=== PATIENT | male | born 1995 | race Caucasian/White ===

== ENCOUNTER 2019-02-20 13:30 | Emergency (ER) | payer SELFPAY ==
[2019-02-20] MEDS ORDERED: LIDOCAINE 2% MPF 5 ML VIAL ONE (14:10)
[2019-02-20] MEDS ORDERED: AZITHROMYCIN 250 MG TAB ONE (14:10)
[2019-02-20] MEDS ORDERED: CEFTRIAXONE 250 MG/VIAL ONE (14:10)
[2019-02-20 14:25] LABS: Urine Blood NEGATIVE (NEG); Urine Glucose NEGATIVE (NEG); Urine Protein NEGATIVE (NEG); Urine Specific Gravity 1.025 (1.005-1.030); Urine pH 6.5 (5.0-7.0)
[2019-02-20 14:47] LABS: Urine Bacteria <20 /HPF (NONE SEEN); Urine Culture Reflex Order NOT NEEDED; Urine RBC <5 /HPF (NONE SEEN)
--- NOTE | 2019-02-20 14:52 | EDPHYS ---
Physician Documentation [facility] Name: Yunior Bautista Age: 23 yrs Sex: Male : 1995 Arrival Date: 02/20/2019 Time: 13:33 Bed 9 Private MD: ED Physician Alejandro Alvarado HPI: 02/20 14:29 This 23 yrs old Male presents to ER via Ambulatory with complaints of Penile kb Discharge. 14:29 The patient presents with a possible STD exposure, symptoms include dysuria, purulent kb penile discharge. Onset: The symptoms/episode began/occurred last week. Modifying factors: The symptoms are alleviated by nothing, the symptoms are aggravated by urinating. Associated signs and symptoms: Pertinent positives: dysuria, Pertinent negatives: abdominal pain, constipation, diarrhea, fever, hematuria, nausea, vomiting. Severity of symptoms: At their worst the symptoms were mild, in the emergency department the symptoms are unchanged. The patient has not experienced similar symptoms in the past. The patient has not recently seen a physician. Historical: - Allergies: 13:52 No Known Allergies; la1 - PMHx: 13:52 None; la1 - Immunization history:: Adult Immunizations up to date. - Social history:: Smoking status: Patient uses tobacco products, smokes one-half pack cigarettes per day. - Ebola Screening: : No symptoms or risks identified at this time. ROS: 14:28 Constitutional: Negative for fever, chills, and weight loss, Cardiovascular: Negative kb for chest pain, palpitations, and edema, Respiratory: Negative for shortness of breath, cough, wheezing, and pleuritic chest pain, Abdomen/GI: Negative for abdominal pain, nausea, vomiting, diarrhea, and constipation, Back: Negative for injury and pain, MS/Extremity: Negative for injury and deformity, Skin: Negative for injury, rash, and discoloration, Neuro: Negative for headache, weakness, numbness, tingling, and seizure. 14:28 : Positive for burning with urination, penile discharge. Exam: 14:28 Constitutional: This is a well developed, well nourished patient who is awake, alert, kb and in no acute distress. Head/Face: Normocephalic, atraumatic. ENT: Nares patent. No nasal discharge, no septal abnormalities noted. Tympanic membranes are normal and external auditory canals are clear. Oropharynx with no redness, swelling, or masses, exudates, or evidence of obstruction, uvula midline. Mucous membranes moist. Neck: Trachea midline, no thyromegaly or masses palpated, and no cervical lymphadenopathy. Supple, full range of motion without nuchal rigidity, or vertebral point tenderness. No Meningismus. Chest/axilla: Normal chest wall appearance and motion. Nontender with no deformity. No lesions are appreciated. Cardiovascular: Regular rate and rhythm with a normal S1 and S2. No gallops, murmurs, or rubs. Normal PMI, no JVD. No pulse deficits. Respiratory: Lungs have equal breath sounds bilaterally, clear to auscultation and percussion. No rales, rhonchi or wheezes noted. No increased work of breathing, no retractions or nasal flaring. Abdomen/GI: Soft, non-tender, with normal bowel sounds. No distension or tympany. No guarding or rebound. No evidence of tenderness throughout. Back: No spinal tenderness. No costovertebral tenderness. Full range of motion. Male : Normal genitalia with no discharge or lesions. Skin: Warm, dry with normal turgor. Normal color with no rashes, no lesions, and no evidence of cellulitis. MS/ Extremity: Pulses equal, no cyanosis. Neurovascular intact. Full, normal range of motion. Neuro: Awake and alert, GCS 15, oriented to person, place, time, and situation. Cranial nerves II-XII grossly intact. Motor strength 5/5 in all extremities. Sensory grossly intact. Cerebellar exam normal. Normal gait. Vital Signs: 13:52 BP 139 / 98; Pulse 76; Resp 16; Temp 97.8; Pulse Ox 100% on R/A; Weight 68.04 kg; la1 Height 6 ft. 0 in. (182.88 cm); 13:52 Body Mass Index 20.34 (68.04 kg, 182.88 cm) la1 MDM: 13:56 Patient medically screened. kb 14:29 Data reviewed: vital signs, nurses notes. Data interpreted: Pulse oximetry: on room air kb is 100 %. Interpretation: normal. 14:30 Counseling: I had a detailed discussion with the patient and/or guardian regarding: the kb historical points, exam findings, and any diagnostic results supporting the discharge/admit diagnosis, lab results, the need for outpatient follow up, a family practitioner, to return to the emergency department if symptoms worsen or persist or if there are any questions or concerns that arise at home. 02/20 14:02 Order name: Urine Dipstick--Ancillary (enter results); Complete Time: 14:25 bd 02/20 14:05 Order name: Urine Microscopic Only; Complete Time: 14:51 kb 02/20 13:56 Order name: Urine Dipstick-Ancillary (obtain specimen); Complete Time: 14:01 kb Administered Medications: 14:16 Drug: Zithromax 1 grams Route: PO; iw 15:05 Follow up: Response: No adverse reaction iw 14:17 Drug: Rocephin (cefTRIAXone) 250 mg Route: IM; Site: right gluteus; iw 15:04 Follow up: Response: No adverse reaction iw 15:04 Drug: Zofran 4 mg Route: PO; iw 15:05 Follow up: Response: No adverse reaction iw Disposition: 16:21 Co-signature as Attending Physician, Alejandro Alvarado MD I agree with the assessment and kdr plan of care. Disposition: 02/20/19 14:51 Discharged to Home. Impression: Dysuria. - Condition is Stable. - Discharge Instructions: Dysuria, Sexually Transmitted Disease, [id number]. - Medication Reconciliation Form, Thank You Letter, Antibiotic Education, Prescription Opioid Use form. - Follow up: Emergency Department; When: As needed; Reason: Worsening of condition. Follow up: Private Physician; When: 2 - 3 days; Reason: Recheck today's complaints, Continuance of care, Re-evaluation by your physician. Signatures: Dispatcher [employer] [facility] Mary Alice Ghosh, VICKY-C VICKY-Alejandro Faustin MD MD [facility] Neela Vallejo RN RN iw Aayush Rodrigez RN RN la1 Corrections: (The following items were deleted from the chart) 15: 14:51 02/20/2019 14:51 Discharged to Home. Impression: Dysuria. Condition is Stable. iw Forms are Medication Reconciliation Form, Thank You Letter, Antibiotic Education, Prescription Opioid Use. Follow up: Emergency Department; When: As needed; Reason: Worsening of condition. Follow up: Private Physician; When: 2 - 3 days; Reason: Recheck today's complaints, Continuance of care, Re-evaluation by your physician. kb
--- NOTE | 2019-02-20 14:52 | ER ---
Nurse's Notes [facility] Name: Yunior Bautista Age: 23 yrs Sex: Male : 1995 Arrival Date: 02/20/2019 Time: 13:33 Bed 9 Private MD: Diagnosis: Dysuria Presentation: 02/20 13:51 Presenting complaint: Patient states: for the last week I have been having burning when la1 I pee and today I noticed some penile discharge. Transition of care: patient was not received from another setting of care. Onset of symptoms was February 20, 2019. Risk Assessment: Do you want to hurt yourself or someone else? Patient reports no desire to harm self or others. Initial Sepsis Screen: Does the patient meet any 2 criteria? No. Patient's initial sepsis screen is negative. Does the patient have a suspected source of infection? No. Patient's initial sepsis screen is negative. Care prior to arrival: None. 13:51 Method Of Arrival: Ambulatory la1 13:51 Acuity: JJ 4 la1 Historical: - Allergies: 13:52 No Known Allergies; la1 - PMHx: 13:52 None; la1 - Immunization history:: Adult Immunizations up to date. - Social history:: Smoking status: Patient uses tobacco products, smokes one-half pack cigarettes per day. - Ebola Screening: : No symptoms or risks identified at this time. Screenin:54 Abuse screen: Denies threats or abuse. Nutritional screening: No deficits noted. la1 Tuberculosis screening: No symptoms or risk factors identified. Fall Risk None identified. Assessment: 13:53 General: Appears in no apparent distress. Behavior is calm, cooperative. Pain: Denies la1 pain. Neuro: Level of Consciousness is awake, alert, obeys commands, Oriented to person, place, time, situation. Cardiovascular: Capillary refill. Respiratory: Airway is patent Respiratory effort is even, unlabored, Respiratory pattern is regular, symmetrical. GI: No signs and/or symptoms were reported involving the gastrointestinal system. : Reports burning with urination, urethral discharge. Vital Signs: 13:52 BP 139 / 98; Pulse 76; Resp 16; Temp 97.8; Pulse Ox 100% on R/A; Weight 68.04 kg; la1 Height 6 ft. 0 in. (182.88 cm); 13:52 Body Mass Index 20.34 (68.04 kg, 182.88 cm) la1 ED Course: 13:33 Patient arrived in ED. rg4 13:52 Triage completed. la1 13:53 Arm band placed on left wrist. la1 13:54 Patient has correct armband on for positive identification. la1 13:56 Mary Alice Ghosh FNP-C is [facility]. kb 13:56 Alejandro Alvarado MD is Attending Physician. kb 14:15 Neela Vallejo, RN is Primary Nurse. iw 15:05 No provider procedures requiring assistance completed. Patient did not have IV access iw during this emergency room visit. Administered Medications: 14:16 Drug: Zithromax 1 grams Route: PO; iw 15:05 Follow up: Response: No adverse reaction iw 14:17 Drug: Rocephin (cefTRIAXone) 250 mg Route: IM; Site: right gluteus; iw 15:04 Follow up: Response: No adverse reaction iw 15:04 Drug: Zofran 4 mg Route: PO; iw 15:05 Follow up: Response: No adverse reaction iw Outcome: 14:51 Discharge ordered by . kb 15:05 Discharged to home ambulatory. iw 15:05 Condition: good 15:05 Discharge instructions given to patient, Instructed on discharge instructions, follow up and referral plans. Demonstrated understanding of instructions, follow-up care. 15:05 Patient left the ED. iw Signatures: Mary Alice Ghosh FNP-C FNP-CkNeela Velazco RN CK iw Aayush Rodrigez RN RN la1 Garcia, Rubi rg4
[2019-02-20] MEDS ORDERED: ONDANSETRON 4 MG (ODT) TAB ONE (15:01)
[2019-02-20 15:27] VITALS: BP 139/98; TEMP 97.8; O2SAT 100
== END 2019-02-20 15:05 | disposition home or self-care (01) ==
LOC: ER 13:30
DX: R30.0 Dysuria (principal); F17.210 Nicotine dependence, cigarettes, uncomplicated
CPT/HCPCS: 81003; 81015; 96372; 99283; J0696

== ENCOUNTER 2019-05-03 08:58 | Emergency (ER) | payer SELFPAY ==
[2019-05-03 09:53] LABS: Absolute Lymphocytes (CBC) 1.6 K/uL (0.7-4.9); Basophils % 0.4 % (0-1.3); MPV 9.4 fL (7.6-11.3); RBC Red Blood Cell Count 6.17 M/uL (4.33-5.43)
[2019-05-03] MEDS ORDERED: METOCLOPRAMIDE 10 MG/2mL INJ ONE (09:59)
[2019-05-03] MEDS ORDERED: DIPHENHYDRAMINE 50 MG/ML VIAL ONE (09:59)
[2019-05-03] MEDS ORDERED: NA CHLORIDE 0.9% 1,000 ML ONE (09:59)
[2019-05-03 10:10] LABS: ALT/SGPT 18 U/L (12-78); AST/SGOT 15 U/L (15-37); Albumin 4.4 g/dL (3.4-5.0); Alkaline Phosphatase 87 U/L (45-117); BUN Blood Urea Nitrogen 8 mg/dL (7-18); Bicarbonate 30 mmol/L (21-32); Bilirubin Direct 0.3 mg/dL (0-0.2); Bilirubin Total 1.1 mg/dL (0.2-1.0); Glucose Level 86 mg/dL (74-106); Lipase 148 U/L (73-393); Potassium 3.7 mmol/L (3.5-5.1); Sodium Level 139 mmol/L (136-145)
[2019-05-03 10:13] LABS: Urine Blood NEGATIVE (NEG); Urine Glucose NEGATIVE (NEG); Urine Protein 1+ (NEG); Urine Specific Gravity >1.030 (1.005-1.030); Urine pH 5.5 (5.0-7.0)
--- NOTE | 2019-05-03 11:57 | ER ---
Nurse's Notes [facility] Name: Yunior Bautista Age: 23 yrs Sex: Male : 1995 Arrival Date: 05/03/2019 Time: 09:03 Bed 17 Private MD: Diagnosis: Vomiting Presentation: 05/03 09:08 Presenting complaint: N/V upon waking today. Denies pain/fever. Transition of care: hb patient was not received from another setting of care. Onset of symptoms was May 03, 2019. Risk Assessment: Do you want to hurt yourself or someone else? Patient reports no desire to harm self or others. Initial Sepsis Screen: Does the patient meet any 2 criteria? No. Patient's initial sepsis screen is negative. Does the patient have a suspected source of infection? No. Patient's initial sepsis screen is negative. Care prior to arrival: None. 09:08 Method Of Arrival: Ambulatory 09:08 Acuity: JJ 3 hb Triage Assessment: 10:00 General: Appears in no apparent distress. comfortable, slender, Behavior is calm, ae4 cooperative. General: Patient is also concerned about an STD, patient denies urinary symptoms at this time. . Pain: Complains of pain in abdomen. EENT: No signs and/or symptoms were reported regarding the EENT system. Patient has braces. . Neuro: Level of Consciousness is awake, alert, obeys commands, Oriented to person, place, time, situation, Appropriate for age. Cardiovascular: Heart tones S1 S2 present Patient's skin is warm and dry. Respiratory: Airway is patent Respiratory effort is even, unlabored, Respiratory pattern is regular, symmetrical. GI: Reports nausea, vomiting. : No signs and/or symptoms were reported regarding the genitourinary system. Derm: Skin is normal. Musculoskeletal: No signs and/or symptoms reported regarding the musculoskeletal system. Historical: - Allergies: 09:09 No Known Allergies; hb - Immunization history:: Adult Immunizations up to date. - Social history:: Smoking status: Patient/guardian denies using tobacco. - Ebola Screening: : No symptoms or risks identified at this time. Screenin:07 Abuse screen: Denies threats or abuse. Nutritional screening: No deficits noted. ae4 Tuberculosis screening: No symptoms or risk factors identified. Fall Risk None identified. Assessment: 10:00 General: Appears in no apparent distress. comfortable, slender. Pain: Complains of pain ae4 in abdomen. Neuro: Level of Consciousness is awake, alert, obeys commands. Cardiovascular: Patient's skin is warm and dry. Respiratory: Airway is patent Respiratory effort is even, unlabored, Respiratory pattern is regular, symmetrical, Breath sounds are clear bilaterally. GI: Reports nausea, vomiting. GI: Abdomen is flat, non-distended, Bowel sounds present X 4 quads. Abd is soft and non tender. : No signs and/or symptoms were reported regarding the genitourinary system. Patient states he is concerned about STDs after engaging in unprotected sexual activity. EENT: Patient wears braces. . Derm: Skin is normal. Musculoskeletal: No signs and/or symptoms reported regarding the musculoskeletal system. 11:06 Reassessment: Patient drank approximately 4 oz water and has not vomited. GI: Patient ae4 currently denies nausea. 11:50 Reassessment:. Reassessment: patient refuses GC swab, states "No, I'll wait, I'll wait, ae4 I can't do that." Provider notified. Vital Signs: 09:09 BP 135 / 76; Pulse 82; Resp 16; Temp 97.2; Pulse Ox 100% ; Weight 72.57 kg; Height 6 hb ft. (182.88 cm); Pain 0/10; 11:11 BP 143 / 94; Pulse 63; Resp 17; Pulse Ox 98% on R/A; ae4 12:18 BP 110 / 76; Pulse 65; Resp 16; Pulse Ox 98% on R/A; ae4 09:09 Body Mass Index 21.70 (72.57 kg, 182.88 cm) ED Course: 09:03 Patient arrived in ED. as 09:09 Dany Lorenz PA is PHCP. jm 09:09 Alejandro Alvarado MD is Attending Physician. jm 09:09 Triage completed. hb 09:09 Arm band placed on. hb 09:18 Torres Jules, CK is Primary Nurse. ae4 09:45 Urine collected: clean catch specimen, cloudy, rosemarie colored. jb1 09:45 Initial lab(s) drawn, by me, sent to lab. jb1 10:00 Bed in low position. Call light in reach. Side rails up X 1. Pulse ox on. NIBP on. ae4 10:05 Inserted saline lock: 22 gauge in right antecubital area, using aseptic technique. jb1 Blood collected. 11:15 Warm blanket given. ae4 12:21 No provider procedures requiring assistance completed. IV discontinued, intact, ae4 bleeding controlled, No redness/swelling at site. Pressure dressing applied. Administered Medications: 10:25 Drug: NS 0.9% 1000 ml Route: IV; Rate: 1 bolus; Site: right antecubital; ae4 12:20 Follow up: IV Status: Completed infusion; IV Intake: 1000ml ae4 10:25 Drug: diphenhydrAMINE 12.5 mg Route: IVP; Site: right antecubital; ae4 11:00 Follow up: Response: No adverse reaction; Other ae4 10:28 Drug: Reglan 10 mg Route: IVP; Site: right antecubital; ae4 11:00 Follow up: Response: No adverse reaction; Pain is decreased ae4 Intake: 12:20 IV: 1000ml; Total: 1000ml. ae4 Outcome: 11:56 Discharge ordered by MD. webster 12:21 Discharged to home ambulatory. ae4 12:21 Condition: stable 12:21 Discharge instructions given to patient, Instructed on discharge instructions, follow up and referral plans. medication usage, safe sex practices, Demonstrated understanding of instructions, follow-up care, medications, Prescriptions given X 1. 12:21 Patient left the ED. ae4 Signatures: Ruel Matta jb1 Dany Lorenz PA PA jmm Martinez, Amelia as Baxter, Heather, RN RN Torres Jules RN RN ae4 Corrections: (The following items were deleted from the chart) 09:31 09:08 Acuity: JJ 4 hb hb
--- NOTE | 2019-05-03 11:57 | EDPHYS ---
Physician Documentation [facility] Name: Yunior Bautista Age: 23 yrs Sex: Male : 1995 Arrival Date: 05/03/2019 Time: 09:03 Bed 17 Private MD: ED Physician Alejandro Alvarado HPI: 05/03 09:25 This 23 yrs old Male presents to ER via Ambulatory with complaints of jmm Vomiting. 09:25 The patient presents to the emergency department with nausea, vomiting. Onset: The jmm symptoms/episode began/occurred gradually, 4 day(s) ago. The symptoms are aggravated by nothing. The symptoms are alleviated by nothing. Associated signs and symptoms: Pertinent negatives: abdominal pain. This is a 23 year old male with no chronic medical conditions that presents to the ED with complaints of nausea/vomiting for the past 4 days. Denies abdominal pain, diarrhea. Patient admits to smoking marijuana daily. Has not smoked in 4 days. Denies fever or chills. . Historical: - Allergies: 09:09 No Known Allergies; hb - Immunization history:: Adult Immunizations up to date. - Social history:: Smoking status: Patient/guardian denies using tobacco. - Ebola Screening: : No symptoms or risks identified at this time. ROS: 09:25 Constitutional: Negative for fever, chills, and weight loss, Cardiovascular: Negative jmm for chest pain, palpitations, and edema, Respiratory: Negative for shortness of breath, cough, wheezing, and pleuritic chest pain. 09:25 Abdomen/GI: Positive for nausea, vomiting, Negative for abdominal pain, diarrhea. 09:25 All other systems are negative. Exam: 09:25 Constitutional: This is a well developed, well nourished patient who is awake, alert, jmm and in no acute distress. Head/Face: atraumatic. Eyes: EOMI, no conjunctival erythema appreciated ENT: Moist Mucus Membranes Neck: Trachea midline, Supple Chest/axilla: Normal chest wall appearance and motion. Cardiovascular: Regular rate and rhythm. No edema appreciated Respiratory: Normal respirations, no respiratory distress appreciated Abdomen/GI: Non distended, soft Back: Normal ROM Skin: General appearance color normal MS/ Extremity: Moves all extremities, no obvious deformities appreciated, no edema noted to the lower extremities Neuro: Awake and alert, normal gait Psych: Behavior is normal, Mood is normal, Patient is cooperative and pleasant 09:25 Abdomen/GI: Inspection: abdomen appears normal, Bowel sounds: normal, Palpation: abdomen is soft and non-tender, in all quadrants. Vital Signs: 09:09 BP 135 / 76; Pulse 82; Resp 16; Temp 97.2; Pulse Ox 100% ; Weight 72.57 kg; Height 6 hb ft. (182.88 cm); Pain 0/10; 11:11 BP 143 / 94; Pulse 63; Resp 17; Pulse Ox 98% on R/A; ae4 12:18 BP 110 / 76; Pulse 65; Resp 16; Pulse Ox 98% on R/A; ae4 09:09 Body Mass Index 21.70 (72.57 kg, 182.88 cm) hb MDM: 09:19 Patient medically screened. [facility] 11:54 Data reviewed: vital signs, nurses notes. Counseling: I had a detailed discussion with darin the patient and/or guardian regarding: the historical points, exam findings, and any diagnostic results supporting the discharge/admit diagnosis, lab results, the need for outpatient follow up, to return to the emergency department if symptoms worsen or persist or if there are any questions or concerns that arise at home. ED course: Labs WNL, abdomen non tender to palpation. I do not suspect an acute intraabdominal process. Patient is advised to follow up with PCP and otherwise given strict return precautions. Patient understood and agrees with the plan of care. . 05/03 09:24 Order name: Basic Metabolic Panel; Complete Time: 10:15 [facility] 05/03 09:24 Order name: CBC with Diff; Complete Time: 10:15 [facility] 05/03 09:24 Order name: Creatinine for Radiology; Complete Time: 10:15 [facility] 05/03 09:24 Order name: Hepatic Function; Complete Time: 10:15 [facility] 05/03 09:24 Order name: Lipase; Complete Time: 10:15 [facility] 05/03 10:03 Order name: Urine Dipstick--Ancillary (enter results); Complete Time: 10:15 05/03 09:24 Order name: IV Saline Lock; Complete Time: 09:54 [facility] 05/03 09:24 Order name: Labs collected and sent; Complete Time: 09:54 [facility] 05/03 09:24 Order name: Urine Dipstick-Ancillary (obtain specimen); Complete Time: 10:06 [facility] 05/03 10:37 Order name: PO challenge; Complete Time: 10:53 [facility] Administered Medications: 10:25 Drug: NS 0.9% 1000 ml Route: IV; Rate: 1 bolus; Site: right antecubital; ae4 12:20 Follow up: IV Status: Completed infusion; IV Intake: 1000ml ae4 10:25 Drug: diphenhydrAMINE 12.5 mg Route: IVP; Site: right antecubital; ae4 11:00 Follow up: Response: No adverse reaction; Other ae4 10:28 Drug: Reglan 10 mg Route: IVP; Site: right antecubital; ae4 11:00 Follow up: Response: No adverse reaction; Pain is decreased ae4 Disposition: 12:44 Co-signature as Attending Physician, Alejandro Alvarado MD I agree with the assessment and kdr plan of care. Disposition: 05/03/19 11:56 Discharged to Home. Impression: Vomiting. - Condition is Stable. - Discharge Instructions: Nausea and Vomiting, Adult. - Prescriptions for Reglan 5 mg Oral tablet - take 1 tablet by ORAL route every 6 hours; 20 tablet. - Medication Reconciliation Form, Thank You Letter, Antibiotic Education, Prescription Opioid Use form. - Follow up: Private Physician; When: 2 - 3 days; Reason: Recheck today's complaints, Continuance of care, Re-evaluation by your physician. Signatures: Dispatcher [employer] EDMI Alejandro Alvarado MD MD kdr Mickail, Joel, PA PA [facility] Bekah Flores RN RN Torres Jules RN RN ae4 Corrections: (The following items were deleted from the chart) 12:21 11:56 05/03/2019 11:56 Discharged to Home. Impression: Vomiting. Condition is Stable. ae4 Forms are Medication Reconciliation Form, Thank You Letter, Antibiotic Education, Prescription Opioid Use. Follow up: Private Physician; When: 2 - 3 days; Reason: Recheck today's complaints, Continuance of care, Re-evaluation by your physician. [facility]
[2019-05-03 12:32] VITALS: TEMP 97.2
[2019-05-03 12:33] VITALS: O2SAT 98
[2019-05-03 12:34] VITALS: BP 110/76
== END 2019-05-03 12:21 | disposition home or self-care (01) ==
LOC: ER 08:58
DX: R11.2 Nausea with vomiting, unspecified (principal)
CPT/HCPCS: 36415; 80048; 80076; 81003; 83690; 85025; 96361; 96374; 96375; 99284; J1200; J2765; J7030

== ENCOUNTER 2019-05-12 20:18 | Emergency (ER) | payer SELFPAY ==
[2019-05-12] MEDS ORDERED: AZITHROMYCIN 250 MG TAB ONE (21:04)
[2019-05-12] MEDS ORDERED: LIDOCAINE 1% MPF 2 ML AMPULE ONE (21:04)
[2019-05-12] MEDS ORDERED: ONDANSETRON 4 MG (ODT) TAB ONE (21:05)
[2019-05-12] MEDS ORDERED: CEFTRIAXONE 250 MG/VIAL ONE (21:05)
[2019-05-12 21:08] LABS: Urine Blood NEGATIVE (NEG); Urine Glucose NEGATIVE (NEG); Urine Protein NEGATIVE (NEG)
[2019-05-12 21:33] LABS: Urine Amorphous Sediment 2+ /HPF (NONE SEEN); Urine Bacteria 20-50 /HPF (NONE SEEN); Urine Coarse Granular Casts 0-5 /LPF (NONE SEEN); Urine Mucus 2+ /HPF (NONE SEEN); Urine RBC NONE SEEN /HPF (NONE SEEN)
[2019-05-12 21:36] LABS: Urine Culture Reflex Order NOT NEEDED
--- NOTE | 2019-05-12 21:45 | EDPHYS ---
Physician Documentation [facility] Name: Yunior Bautista Age: 23 yrs Sex: Male : 1995 Arrival Date: 05/12/2019 Time: 20:21 Bed 5 Private MD: ED Physician Renny Gustafson HPI: 05/12 21:05 This 23 yrs old Male presents to ER via Ambulatory with complaints of genital pm1 warts and itching. 21:05 The patient presents with symptoms include bumps on penis, one episode of whitish pm1 discharge from penis last week, redness and itching to scrotal area. Onset: The symptoms/episode began/occurred Present since February 2019 and has not resolved. Modifying factors: The symptoms are alleviated by nothing, the symptoms are aggravated by touching. Associated signs and symptoms: Pertinent negatives: abdominal pain, dysuria, fever, nausea, vomiting, scrotal pain. Severity of symptoms: in the emergency department the symptoms are unchanged. It is unknown whether or not the patient has recently seen a physician. Historical: - Allergies: 20:40 No Known Allergies; bb - Home Meds: 20:40 None [Active]; bb - PMHx: 20:40 None; bb - PSHx: 20:40 None; bb - Immunization history:: Adult Immunizations up to date. - Social history:: Smoking status: unknown. - Ebola Screening: : No symptoms or risks identified at this time. ROS: 21:05 Constitutional: Negative for fever, chills, and weight loss, Cardiovascular: Negative pm1 for chest pain, palpitations, and edema, Respiratory: Negative for shortness of breath, cough, wheezing, and pleuritic chest pain, Abdomen/GI: Negative for abdominal pain, nausea, vomiting, diarrhea, and constipation, Back: Negative for injury and pain. 21:05 MS/Extremity: Negative for injury and deformity. 21:05 Neuro: Negative for headache, weakness, numbness, tingling, and seizure. 21:05 : Positive for penile discharge, itchy rash to scrotum, bumps on penile shaft, Negative for burning with urination, penile pain, testicular pain 21:05 Skin: Positive for rash, of the groin. Exam: 21:05 Constitutional: This is a well developed, well nourished patient who is awake, alert, pm1 and in no acute distress. Head/Face: Normocephalic, atraumatic. Chest/axilla: Normal chest wall appearance and motion. Nontender with no deformity. No lesions are appreciated. Cardiovascular: Regular rate and rhythm with a normal S1 and S2. No gallops, murmurs, or rubs. Normal PMI, no JVD. No pulse deficits. Respiratory: Lungs have equal breath sounds bilaterally, clear to auscultation and percussion. No rales, rhonchi or wheezes noted. No increased work of breathing, no retractions or nasal flaring. Abdomen/GI: Soft, non-tender, with normal bowel sounds. No distension or tympany. No guarding or rebound. No evidence of tenderness throughout. Back: No spinal tenderness. No costovertebral tenderness. Full range of motion. 21:05 : Male external genitalia: Circumcision noted. lesion, of the shaft of penis, that is painless, 1 mm papules, penile discharge, is absent, scrotal skin with the appearance of tinea cruris or cutaneous candidiasis: scaling erythematous patches. 21:05 MS/ Extremity: Pulses equal, no cyanosis. Neurovascular intact. Full, normal range pm1 of motion. 21:05 Neuro: Orientation: is normal, Motor: is normal, moves all fours, Sensation: is normal, no obvious gross deficits, Gait: is steady, at a normal pace, without difficulty. Vital Signs: 20:40 BP 148 / 90; Pulse 96; Resp 14 S; Temp 98.2(O); Pulse Ox 97% on R/A; Weight 72.57 kg bb (R); Height 6 ft. 0 in. (182.88 cm) (R); Pain 7/10; 21:52 BP 136 / 90; Pulse 74; Resp 14 S; Temp 98.5(O); Pulse Ox 98% on R/A; bb 20:40 Body Mass Index 21.70 (72.57 kg, 182.88 cm) bb MDM: 20:43 Patient medically screened. [facility] 21:09 ED course: patient with genital warts on shaft of his penis. Impression is likely HPV pm1 since multiple papular lesions present along shaft of penis. No vesicles per history or examination so I do not suspect HSV. Patient with redness to scrotal area without swelling, that appears to be tinea cruris or candidiasis. Will treat the patient with topical clotrimazole prescription. Rocephin and azithromycin in the ER. 21:40 Data reviewed: vital signs. Data interpreted: Pulse oximetry: on room air is 97 %. pm1 Interpretation: normal. Counseling: I had a detailed discussion with the patient and/or guardian regarding: the historical points, exam findings, and any diagnostic results supporting the discharge/admit diagnosis, lab results, the need for outpatient follow up, STD clinic and/or dermatology, to return to the emergency department if symptoms worsen or persist or if there are any questions or concerns that arise at home. 05/12 20:46 Order name: Urine Microscopic Only; Complete Time: 21:40 pm1 05/12 21:02 Order name: Urine Dipstick--Ancillary (enter results); Complete Time: 21:17 mt 05/12 21:35 Order name: Urine Culture EDIL 05/12 20:46 Order name: Urine Dipstick-Ancillary (obtain specimen); Complete Time: 21:01 pm1 Administered Medications: 21:08 Drug: Rocephin (cefTRIAXone) 250 mg Route: IM; Site: left gluteus; bb 21:51 Follow up: Response: No adverse reaction bb 21:08 Drug: Zithromax 1 grams Route: PO; bb 21:52 Follow up: Response: No adverse reaction bb 21:08 Drug: Zofran 4 mg Route: PO; bb 21:52 Follow up: Response: No adverse reaction bb Disposition: 05/13 09:38 Co-signature as Attending Physician, Renny Gustafson MD I agree with the assessment and alva plan of care. Disposition: 05/12/19 21:42 Discharged to Home. Impression: Anogenital (venereal) warts, Rash and other nonspecific skin eruption - Cutaneous candidiasis vs Tinea cruris. - Condition is Stable. - Discharge Instructions: Genital Warts, Sexually Transmitted Disease, Jock Itch, Human Papillomavirus, Genital Yeast Infection, Male. - Prescriptions for Clotrimazole 1 % Topical Cream - Apply to affected area 1 application by TOPICAL route every 12 hours; 30 gram. - Medication Reconciliation Form, Thank You Letter, Antibiotic Education, Prescription Opioid Use form. - Follow up: Emergency Department; When: As needed; Reason: Worsening of condition. Follow up: Private Physician; When: 2 - 3 days; Reason: Recheck today's complaints, Continuance of care, Re-evaluation by your physician. - Problem is new. - Symptoms have improved. Signatures: Dispatcher [employer] EDRenny Gary MD MD cha Ballard, Brenda, RN RN bb Lavell Cristina, [employer]ATH[employer]ICA[employer] ANALYST pm1 Corrections: (The following items were deleted from the chart) 05/12 21:53 21:42 05/12/2019 21:42 Discharged to Home. Impression: Anogenital (venereal) warts; bb Rash and other nonspecific skin eruption - Cutaneous candidiasis vs Tinea cruris. Condition is Stable. Discharge Instructions: Genital Warts, Sexually Transmitted Disease, Human Papillomavirus, Genital Yeast Infection, Male. Prescriptions for Clotrimazole 1 % Topical Cream - Apply to affected area 1 application by TOPICAL route every 12 hours; 30 gram. and Forms are Medication Reconciliation Form, Thank You Letter, Antibiotic Education, Prescription Opioid Use. Follow up: Emergency Department; When: As needed; Reason: Worsening of condition. Follow up: Private Physician; When: 2 - 3 days; Reason: Recheck today's complaints, Continuance of care, Re-evaluation by your physician. Problem is new. Symptoms have improved. pm1
--- NOTE | 2019-05-12 21:45 | ER ---
Nurse's Notes [facility] Name: Yunior Bautista Age: 23 yrs Sex: Male : 1995 Arrival Date: 05/12/2019 Time: 20:21 Bed 5 Private MD: Diagnosis: Anogenital (venereal) warts;Rash and other nonspecific skin eruption-Cutaneous candidiasis vs Tinea cruris Presentation: 05/12 20:39 Presenting complaint: Patient states: he has a rash to his scrotal area which has bb gotten worse he was seen here for it and given antibiotic ointment but it hasn't gone away. Transition of care: patient was not received from another setting of care. Onset of symptoms was May 12, 2019. Risk Assessment: Do you want to hurt yourself or someone else? Patient reports no desire to harm self or others. Initial Sepsis Screen: Does the patient meet any 2 criteria? No. Patient's initial sepsis screen is negative. Does the patient have a suspected source of infection? No. Patient's initial sepsis screen is negative. Care prior to arrival: None. 20:39 Method Of Arrival: Ambulatory bb 20:39 Acuity: JJ 3 bb Historical: - Allergies: 20:40 No Known Allergies; bb - Home Meds: 20:40 None [Active]; bb - PMHx: 20:40 None; bb - PSHx: 20:40 None; bb - Immunization history:: Adult Immunizations up to date. - Social history:: Smoking status: unknown. - Ebola Screening: : No symptoms or risks identified at this time. Screenin:41 Abuse screen: Denies threats or abuse. Nutritional screening: No deficits noted. bb Tuberculosis screening: No symptoms or risk factors identified. Fall Risk None identified. Assessment: 20:41 General: Appears in no apparent distress. Behavior is calm, cooperative. Pain: bb Complains of pain in scrotal area Pain currently is 7 out of 10 on a pain scale. Neuro: Level of Consciousness is awake, alert, obeys commands, Oriented to person, place, time, situation. Cardiovascular: No deficits noted. Respiratory: Respiratory effort is even, unlabored, Respiratory pattern is regular. GI: No deficits noted. No signs and/or symptoms were reported involving the gastrointestinal system. Derm: Reports pain that is 7 out of 10 on a pain scale. Musculoskeletal: Circulation, motion, and sensation intact. 21:51 Reassessment: Patient is alert, oriented x 3, equal unlabored respirations, skin bb warm/dry/pink. pt verbalized understanding of and agrees to plan of care discharge instructions given pt ambulated with steady gait to exit. Vital Signs: 20:40 BP 148 / 90; Pulse 96; Resp 14 S; Temp 98.2(O); Pulse Ox 97% on R/A; Weight 72.57 kg bb (R); Height 6 ft. 0 in. (182.88 cm) (R); Pain 7/10; 21:52 BP 136 / 90; Pulse 74; Resp 14 S; Temp 98.5(O); Pulse Ox 98% on R/A; bb 20:40 Body Mass Index 21.70 (72.57 kg, 182.88 cm) bb ED Course: 20:21 Patient arrived in ED. cl3 20:39 Meseret Geiger, RN is Primary Nurse. bb 20:40 Triage completed. bb 20:40 Arm band placed on Patient placed in an exam room, on a stretcher, on pulse oximetry. bb 20:41 Patient has correct armband on for positive identification. bb 20:43 Renny Gustafson MD is Attending Physician. alva 20:45 Lavell Cristina NP is [facility]. pm1 21:52 No provider procedures requiring assistance completed. Patient did not have IV access bb during this emergency room visit. Administered Medications: 21:08 Drug: Rocephin (cefTRIAXone) 250 mg Route: IM; Site: left gluteus; bb 21:51 Follow up: Response: No adverse reaction bb 21:08 Drug: Zithromax 1 grams Route: PO; bb 21:52 Follow up: Response: No adverse reaction bb 21:08 Drug: Zofran 4 mg Route: PO; bb 21:52 Follow up: Response: No adverse reaction bb Outcome: 21:42 Discharge ordered by . pm1 21:52 Discharged to home ambulatory. bb 21:52 Condition: stable 21:52 Discharge instructions given to patient, Instructed on discharge instructions, follow up and referral plans. medication usage, Demonstrated understanding of instructions, follow-up care, medications, Prescriptions given X 1. 21:53 Patient left the ED. bb Signatures: Renny Gustafson MD MD cha Ballard, Brenda RN RN bb Lavell Cristina, PECAN SHELLER PECAN SHELLER pm1 Brianna Martinez cl3 Corrections: (The following items were deleted from the chart) 21:28 20:39 Acuity: JJ 5 bb kia
[2019-05-12 22:05] VITALS: BP 136/90; TEMP 98.5; O2SAT 98
== END 2019-05-12 21:53 | disposition home or self-care (01) ==
LOC: ER 20:18
DX: A63.0 Anogenital (venereal) warts (principal)
CPT/HCPCS: 81003; 81015; 96372; 99283; J0696; J2001

== ENCOUNTER 2019-09-07 19:37 | Emergency (ER) | payer SELFPAY ==
[2019-09-07] MEDS ORDERED: CEFTRIAXONE 250 MG/VIAL ONE (21:34)
[2019-09-07] MEDS ORDERED: ONDANSETRON 4 MG/2 ML VIAL ONE (21:34)
[2019-09-07] MEDS ORDERED: DICYCLOMINE HCL 10 MG CAP ONE (21:34)
[2019-09-07] MEDS ORDERED: NA CHLORIDE 0.9% 1,000 ML ONE (21:34)
[2019-09-07] MEDS ORDERED: AZITHROMYCIN 250 MG TAB ONE (21:35)
[2019-09-07 21:44] LABS: ALT/SGPT 19 U/L (12-78); AST/SGOT 14 U/L (15-37); Albumin 4.5 g/dL (3.4-5.0); Alkaline Phosphatase 82 U/L (45-117); BUN Blood Urea Nitrogen 7 mg/dL (7-18); Bicarbonate 29 mmol/L (21-32); Bilirubin Direct 0.2 mg/dL (0-0.2); Bilirubin Total 1.1 mg/dL (0.2-1.0); Glucose Level 96 mg/dL (74-106); Lipase 93 U/L (73-393); Potassium 3.4 mmol/L (3.5-5.1); Protein, Total 8.3 g/dL (6.4-8.2); Sodium Level 139 mmol/L (136-145)
[2019-09-07 21:51] LABS: Absolute Lymphocytes (CBC) 0.7 K/uL (0.7-4.9); Basophils % 0.5 % (0-1.3); Hematocrit 52.7 % (39.6-49.0); Lymphocytes % 3.4 % (15.3-44.8); MPV 9.2 fL (7.6-11.3); RBC Red Blood Cell Count 6.12 M/uL (4.33-5.43)
[2019-09-07 22:31] LABS: Blood Morphology Comment NOT SEEN (NOT SEEN); Platelet Estimate ADEQ
--- NOTE | 2019-09-07 23:49 | ER ---
Nurse's Notes [facility] Name: Yunior Bautista Age: 23 yrs Sex: Male : 1995 Arrival Date: 09/07/2019 Time: 19:39 Bed 5 Private MD: Diagnosis: Colitis Presentation: 09/06 20:13 Chief complaint: Patient states: [place]-colored diarrhea since yesterday, diarrhea 20x ca1 today. N/V since today. Reports chills. Coronavirus screen: Proceed with normal triage. Patient denies a cough. Patient denies shortness of breath or difficulty breathing. Patient denies measured and/or subjective temperature greater than 100.4F prior to today's visit. Patient denies travel on a cruise ship or to a country the [facility] currently lists as an affected area. Patient denies contact with known and/or suspected case of COVID-19. Ebola Screen: Patient negative for fever greater than or equal to 101.5 degrees Fahrenheit, and additional compatible Ebola Virus Disease symptoms Patient denies exposure to infectious person. Patient denies travel to an Ebola-affected area in the 21 days before illness onset. No symptoms or risks identified at this time. Initial Sepsis Screen: Does the patient meet any 2 criteria? No. Patient's initial sepsis screen is negative. Does the patient have a suspected source of infection? No. Patient's initial sepsis screen is negative. Risk Assessment: Do you want to hurt yourself or someone else? Patient reports no desire to harm self or others. Onset of symptoms was September 07, 2019. 20:13 Method Of Arrival: Ambulatory ca1 20:13 Acuity: JJ 3 ca1 Historical: - Allergies: 20:18 No Known Allergies; ca1 - Home Meds: 20:18 None [Active]; ca1 - PMHx: 20:18 None; ca1 - PSHx: 20:18 None; ca1 - Immunization history:: Adult Immunizations up to date, Flu vaccine is up to date. - Social history:: Smoking status: Patient reports the use of cigarette tobacco products, denies chronic smoking, but will smoke occasionally. Screenin:22 Abuse screen: Denies threats or abuse. Nutritional screening: No deficits noted. jd3 Tuberculosis screening: No symptoms or risk factors identified. Fall Risk IV access (20 points). Ambulatory Aid- None/Bed Rest/Nurse Assist (0 pts). Gait- Normal/Bed Rest/Wheelchair (0 pts) Mental Status- Oriented to own ability (0 pts). [place] Fall Scale indicates No Risk (0-24 pts). Assessment: 21:18 General: Appears in no apparent distress. uncomfortable, Behavior is calm, cooperative, jd3 appropriate for age. Pain: Complains of pain in abdomen Quality of pain is described as aching, squeezing, tender, Is continuous. Neuro: Level of Consciousness is awake, alert, obeys commands, Oriented to person, place, time, situation. Cardiovascular: Denies chest pain, Heart tones S1 S2 present Capillary refill < 3 seconds Patient's skin is warm and dry. Respiratory: Airway is patent Respiratory effort is even, unlabored, Respiratory pattern is regular, symmetrical, Breath sounds are clear bilaterally. Denies cough, shortness of breath. GI: Abdomen is flat, non-distended, Bowel sounds present X 4 quads. Abd is soft X 4 quads Abdomen is tender to palpation X 4 quads. Reports cramping, diarrhea, nausea. : No signs and/or symptoms were reported regarding the genitourinary system. EENT: No signs and/or symptoms were reported regarding the EENT system. Derm: Skin is intact, Skin is dry, Skin is normal, Skin temperature is warm. Musculoskeletal: Circulation, motion, and sensation intact. Range of motion: intact in all extremities. 22:03 Reassessment: No changes from previously documented assessment. Patient and/or family jd3 updated on plan of care and expected duration. Pain level reassessed. Patient is alert, oriented x 3, equal unlabored respirations, skin warm/dry/pink. 23:39 Reassessment: Patient appears in no apparent distress at this time. Patient and/or jd3 family updated on plan of care and expected duration. Pain level reassessed. Patient is alert, oriented x 3, equal unlabored respirations, skin warm/dry/pink. awaiting results Patient states feeling better. 23:56 Reassessment: Patient appears in no apparent distress at this time. Patient and/or jd3 family updated on plan of care and expected duration. Pain level reassessed. Patient is alert, oriented x 3, equal unlabored respirations, skin warm/dry/pink. Patient states feeling better. Vital Signs: 20:13 BP 139 / 70; Pulse 105; Resp 20 S; Temp 99(O); Pulse Ox 98% on R/A; Weight 65.77 kg ca1 (R); Height 6 ft. 0 in. (182.88 cm) (R); Pain 8/10; 22:03 BP 117 / 63; Pulse 79; Resp 17 S; Pulse Ox 100% on R/A; jd3 23:39 BP 111 / 63; Pulse 88; Resp 17 S; Pulse Ox 99% on R/A; jd3 20:13 Body Mass Index 19.67 (65.77 kg, 182.88 cm) ca1 ED Course: 19:39 Patient arrived in ED. fj1 19:44 Mary Alice Ghosh FNP-C is PHCP. kb 19:44 Renny Gustafson MD is Attending Physician. kb 20:16 Triage completed. ca1 20:18 Arm band placed on right wrist. ca1 21:06 Alecia Davila, RN is Primary Nurse. ls4 21:17 Initial lab(s) drawn, by va, sent to lab. Inserted saline lock: 22 gauge in right lt1 antecubital area, using aseptic technique. 21:18 Primary Nurse role handed off by Alecia Davila, RN jd3 21:18 Fernando Holt, RN is Primary Nurse. jd3 21:18 Bed in low position. Call light in reach. Side rails up X 1. Door closed. Lights lt1 dimmed. Warm blanket given. 23:03 CT Abd/Pelvis - IV Contrast Only In Process Unspecified. EDMS 23:56 No provider procedures requiring assistance completed. IV discontinued, intact, jd3 bleeding controlled, No redness/swelling at site. Pressure dressing applied. Administered Medications: 21:49 Drug: NS 0.9% 1000 ml Route: IV; Rate: 1000 ml; Site: right antecubital; jd3 22:40 Follow up: Response: No adverse reaction; IV Status: Completed infusion; IV Intake: jd3 1000ml 21:49 Drug: Rocephin (cefTRIAXone) 250 mg Route: IM; Site: left deltoid; jd3 22:00 Follow up: Response: No adverse reaction jd3 21:50 Drug: Zofran (Ondansetron) 4 mg Route: IVP; Site: right antecubital; jd3 22:50 Follow up: Response: No adverse reaction jd3 22:02 Drug: Bentyl 20 mg Route: PO; jd3 23:00 Follow up: Response: No adverse reaction jd3 23:50 Drug: Zithromax 1 grams Route: PO; jd3 23:55 Follow up: Response: Medication administered at discharge. jd3 Intake: 22:40 IV: 1000ml; Total: 1000ml. jd3 Outcome: 23:48 Discharge ordered by MD. turcios 23:56 Discharged to home ambulatory. jd3 23:56 Condition: stable 23:56 Discharge instructions given to patient, Instructed on discharge instructions, follow up and referral plans. medication usage, Demonstrated understanding of instructions, follow-up care, medications, Prescriptions given X 4. 23:56 Patient left the ED. jd3 Signatures: Dispatcher [employer] EDMS Mary Alice Ghosh, GILBERTO MUÑOZP-Fernando Thayer RN RN jd3 Alecia Davila RN RN ls4 Judith Chacko RN CK ca1 Tatiana Hendricks 1 Chalo Frausto fj1 Corrections: (The following items were deleted from the chart) 22:04 22:03 Pulse 79bpm; Resp 17bpm; Spontaneous; Pulse Ox 100% RA; jd3 jd3
--- NOTE | 2019-09-07 23:49 | EDPHYS ---
Physician Documentation [facility] Name: Yunior Bautista Age: 23 yrs Sex: Male : 1995 Arrival Date: 09/07/2019 Time: 19:39 Bed 5 Private MD: ED Physician Renny Gustafson HPI: 09/06 23:45 This 23 yrs old Male presents to ER via Ambulatory with complaints of Bloody kb Stools, Nausea/Vomiting/Diarrhea, Abdominal Pain. 23:45 The patient presents to the emergency department with nausea, vomiting, diarrhea, kb abdominal pain, of the abdomen diffusely, described as crampy. Onset: The symptoms/episode began/occurred this morning. Possible causes: antibiotics. The symptoms are aggravated by nothing. The symptoms are alleviated by nothing. Associated signs and symptoms: Pertinent positives: abdominal pain, diarrhea, nausea, vomiting, Pertinent negatives: fever. Severity of symptoms: At their worst the symptoms were moderate in the emergency department the symptoms are unchanged. The patient has not experienced similar symptoms in the past. The patient has been recently seen by a physician:. Pt reports he saw Dr Cortez about 4 days ago because he had unprotected sex and wanted to get checked to be on the safe side. States Dr Cortez did a urine test and gave him doxycycline. States he has been taking that as directed and started having n/v/d and abd cramps this morning. States he stopped the medication. . Historical: - Allergies: 20:18 No Known Allergies; ca1 - Home Meds: 20:18 None [Active]; ca1 - PMHx: 20:18 None; ca1 - PSHx: 20:18 None; ca1 - Immunization history:: Adult Immunizations up to date, Flu vaccine is up to date. - Social history:: Smoking status: Patient reports the use of cigarette tobacco products, denies chronic smoking, but will smoke occasionally. ROS: 23:44 Constitutional: Negative for fever, chills, and weight loss, ENT: Negative for injury, kb pain, and discharge, Neck: Negative for injury, pain, and swelling, Cardiovascular: Negative for chest pain, palpitations, and edema, Respiratory: Negative for shortness of breath, cough, wheezing, and pleuritic chest pain, Back: Negative for injury and pain, MS/Extremity: Negative for injury and deformity, Skin: Negative for injury, rash, and discoloration, Neuro: Negative for headache, weakness, numbness, tingling, and seizure. 23:44 Abdomen/GI: Positive for nausea, vomiting, and diarrhea, abdominal cramps, Negative for constipation, abdominal distension. Exam: 23:45 Constitutional: This is a well developed, well nourished patient who is awake, alert, kb and in no acute distress. Head/Face: Normocephalic, atraumatic. Neck: Trachea midline, no thyromegaly or masses palpated, and no cervical lymphadenopathy. Supple, full range of motion without nuchal rigidity, or vertebral point tenderness. No Meningismus. Chest/axilla: Normal chest wall appearance and motion. Nontender with no deformity. No lesions are appreciated. Cardiovascular: Regular rate and rhythm with a normal S1 and S2. No gallops, murmurs, or rubs. Normal PMI, no JVD. No pulse deficits. Respiratory: Lungs have equal breath sounds bilaterally, clear to auscultation and percussion. No rales, rhonchi or wheezes noted. No increased work of breathing, no retractions or nasal flaring. Abdomen/GI: Soft, non-tender, with normal bowel sounds. No distension or tympany. No guarding or rebound. No evidence of tenderness throughout. Soreness to entire abd, no tenderness Back: No spinal tenderness. No costovertebral tenderness. Full range of motion. Skin: Warm, dry with normal turgor. Normal color with no rashes, no lesions, and no evidence of cellulitis. MS/ Extremity: Pulses equal, no cyanosis. Neurovascular intact. Full, normal range of motion. Neuro: Awake and alert, GCS 15, oriented to person, place, time, and situation. Cranial nerves II-XII grossly intact. Motor strength 5/5 in all extremities. Sensory grossly intact. Cerebellar exam normal. Normal gait. Vital Signs: 20:13 BP 139 / 70; Pulse 105; Resp 20 S; Temp 99(O); Pulse Ox 98% on R/A; Weight 65.77 kg ca1 (R); Height 6 ft. 0 in. (182.88 cm) (R); Pain 8/10; 22:03 BP 117 / 63; Pulse 79; Resp 17 S; Pulse Ox 100% on R/A; jd3 23:39 BP 111 / 63; Pulse 88; Resp 17 S; Pulse Ox 99% on R/A; jd3 20:13 Body Mass Index 19.67 (65.77 kg, 182.88 cm) ca1 MDM: 21:04 Patient medically screened. kb 23:44 Data reviewed: vital signs, nurses notes. Data interpreted: Pulse oximetry: on room air kb is 99 %. Interpretation: normal. 23:48 Counseling: I had a detailed discussion with the patient and/or guardian regarding: the kb historical points, exam findings, and any diagnostic results supporting the discharge/admit diagnosis, lab results, radiology results, the need for outpatient follow up, a family practitioner, to return to the emergency department if symptoms worsen or persist or if there are any questions or concerns that arise at home. 09/06 20:33 Order name: Basic Metabolic Panel; Complete Time: 21:45 kb 09/06 20:33 Order name: CBC with Diff; Complete Time: 22:34 kb 09/06 20:33 Order name: Hepatic Function; Complete Time: 21:45 kb 09/06 20:33 Order name: Lipase; Complete Time: 21:45 kb 09/06 21:59 Order name: CT Abd/Pelvis - IV Contrast Only kb 09/06 22:31 Order name: Manual Differential; Complete Time: 22:34 EDMS 09/06 20:33 Order name: IV Saline Lock; Complete Time: 21:06 kb 09/06 20:33 Order name: Labs collected and sent; Complete Time: 21:06 kb Administered Medications: 21:49 Drug: NS 0.9% 1000 ml Route: IV; Rate: 1000 ml; Site: right antecubital; jd3 22:40 Follow up: Response: No adverse reaction; IV Status: Completed infusion; IV Intake: jd3 1000ml 21:49 Drug: Rocephin (cefTRIAXone) 250 mg Route: IM; Site: left deltoid; jd3 22:00 Follow up: Response: No adverse reaction jd3 21:50 Drug: Zofran (Ondansetron) 4 mg Route: IVP; Site: right antecubital; jd3 22:50 Follow up: Response: No adverse reaction jd3 22:02 Drug: Bentyl 20 mg Route: PO; jd3 23:00 Follow up: Response: No adverse reaction jd3 23:50 Drug: Zithromax 1 grams Route: PO; jd3 23:55 Follow up: Response: Medication administered at discharge. jd3 Disposition: 09/07/19 23:48 Discharged to Home. Impression: Colitis. - Condition is Stable. - Discharge Instructions: Colitis. - Prescriptions for Bentyl 20 mg Oral Tablet - take 1 tablet by ORAL route every 6 hours As needed; 20 tablet. Flagyl 500 mg Oral Tablet - take 1 tablet by ORAL route every 8 hours for 10 days; 30 tablet. Zofran 4 mg Oral Tablet - take 1 tablet by ORAL route every 6 hours As needed; 20 tablet. Cipro 500 mg Oral Tablet - take 1 tablet by ORAL route every 12 hours for 7 days; 14 tablet. - Medication Reconciliation Form, Thank You Letter, Antibiotic Education, Prescription Opioid Use form. - Follow up: Emergency Department; When: As needed; Reason: Worsening of condition. Follow up: Private Physician; When: 2 - 3 days; Reason: Recheck today's complaints, Continuance of care, Re-evaluation by your physician. Addendum: 09/10/2019 15:03 Co-signature as Attending Physician, Renny Gustafson MD I agree with the assessment and c garcia plan of care. Signatures: Dispatcher [employer] EDMary Alice Vanegas, BUTTON SPINDLER-C BUTTON SPINDLER-Ckb Renny Gustafson MD MD cha Davies, Jonathon RN RN Judith Chan RN RN ca1 Corrections: (The following items were deleted from the chart) 09/06 23:56 23:48 09/07/2019 23:48 Discharged to Home. Impression: Colitis. Condition is Stable. jd3 Forms are Medication Reconciliation Form, Thank You Letter, Antibiotic Education, Prescription Opioid Use. Follow up: Emergency Department; When: As needed; Reason: Worsening of condition. Follow up: Private Physician; When: 2 - 3 days; Reason: Recheck today's complaints, Continuance of care, Re-evaluation by your physician. kb
[2019-09-08 02:04] VITALS: TEMP 99
[2019-09-08 02:06] VITALS: BP 111/63; O2SAT 99
--- NOTE | 2019-09-08 12:59 | RAD REPORT ---
EXAM DESCRIPTION: Abdomen Pelvis W Contrast CLINICAL HISTORY: ABD PAIN COMPARISON: None. TECHNIQUE: CT ABDOMEN PELVIS WITH IV CONTRAST on 09/07/2019 9:59 PM CDT This exam was performed according to our departmental dose-optimization program, which includes autom ated exposure control, adjustment of the mA and/or kV according to patient size and/or use of iterati ve reconstruction technique. FINDINGS: Lower lungs are clear. Abdomen: The liver is normal in appearance. There is no biliary dilatation. Gallbladder is normal in appearance. The pancreas and spleen are normal in appearance. The adrenal glands and kidneys are unre markable. Abdominal aorta is normal in course and caliber without aneurysm. There is no free air. There is no r etroperitoneal adenopathy. Pelvis: There is mild to moderate thickening of much of the transverse and descending colon. Urinary bladder is unremarkable. There is small amount of free pelvic fluid. Appendix is normal. Skeleton: There are no acute osseous findings. No suspicious bony lesions. IMPRESSION: Large segment of probable infectious or inflammatory colitis. Electronically signed by: Mikey Pelayo MD 09/07/2019 11:24 PM CDT Due to temporary technical issues with the PACS/Fluency reporting system, reports are being signed by the in house radiologist as a courtesy to ensure prompt reporting. The interpreting radiologist is f ully responsible for the content of the report.
== END 2019-09-07 23:56 | disposition home or self-care (01) ==
LOC: ER 19:37
DX: K52.9 Noninfective gastroenteritis and colitis, unspecified (principal); Z72.0 Tobacco use
CPT/HCPCS: 36415; 74177; 80048; 80076; 83690; 85025; 96361; 96372; 96374; 99284; J0696; J2405; J7030; Q9967

== ENCOUNTER 2019-12-11 15:14 | Emergency (ER) | payer SELFPAY ==
[2019-12-11] MEDS ORDERED: ONDANSETRON 4 MG (ODT) TAB ONE (18:19)
--- NOTE | 2019-12-11 19:36 | EDPHYS ---
Physician Documentation [facility] Name: Yunior Bautista Age: 24 yrs Sex: Male : 1995 Arrival Date: 12/11/2019 Time: 15:14 Bed 14 Private MD: ED Physician Alejandro Alvarado HPI: 12/10 18:00 This 24 yrs old Male presents to ER via Ambulatory with complaints of cp Nausea/Vomiting. 18:00 This 24 yrs old Male presents to ER via Ambulatory with complaints of cp Nausea/Vomiting. 18:00 The patient presents to the emergency department with nausea, that is mild, vomiting, cp that is intermittent, diarrhea, that is intermittent, abdominal pain, described as crampy. Onset: The symptoms/episode began/occurred last night. Possible causes: unknown. Associated signs and symptoms: Pertinent positives: abdominal pain, sore throat, Pertinent negatives: fever, GI bleeding. Severity of symptoms: in the emergency department the symptoms have improved mildly. Historical: - Allergies: 15:40 No Known Allergies; ca1 - Home Meds: 15:40 None [Active]; ca1 - PMHx: 15:40 Hyperactive Thyroid; ca1 - PSHx: 15:40 None; ca1 - Immunization history:: Adult Immunizations up to date. - Social history:: Smoking status: Patient reports the use of cigarette tobacco products, denies chronic smoking, but will smoke occasionally. ROS: 18:05 Constitutional: Negative for body aches, chills, fever. cp 18:05 Eyes: Negative for injury, pain, redness, and discharge. cp 18:05 ENT: Positive for sore throat, Negative for ear pain, difficulty swallowing, difficulty handling secretions. 18:05 Cardiovascular: Negative for chest pain, palpitations. 18:05 Respiratory: Negative for cough, shortness of breath, wheezing. 18:05 Abdomen/GI: Positive for nausea, vomiting, and diarrhea, abdominal cramps, Negative for constipation, hematemesis, black/tarry stool, rectal bleeding. 18:05 : Negative for urinary symptoms. 18:05 Neuro: Negative for altered mental status, headache, weakness. 18:05 All other systems are negative. Exam: 18:12 Constitutional: The patient appears in no acute distress, alert, awake, non-toxic, well cp developed, well nourished. 18:12 Head/Face: Normocephalic, atraumatic. cp 18:12 Eyes: Periorbital structures: appear normal, Conjunctiva: normal, no exudate, no injection, Sclera: no appreciated abnormality, Lids and lashes: appear normal, bilaterally. 18:12 ENT: External ear(s): are unremarkable, Nose: is normal, Mouth: Lips: moist, Oral mucosa: moist, Posterior pharynx: Airway: no evidence of obstruction, patent, Tonsils: no enlargement, no exudate, swelling, is not appreciated, erythema, that is mild, exudate, is not appreciated. 18:12 Neck: ROM/movement: is normal, is supple, without pain, no range of motions limitations, no meningismus, Lymph nodes: no appreciated lymphadenopathy. 18:12 Chest/axilla: Inspection: normal, Palpation: is normal, no crepitus, no tenderness. 18:12 Cardiovascular: Rate: normal, Rhythm: regular. 18:12 Respiratory: the patient does not display signs of respiratory distress, Respirations: normal, no use of accessory muscles, no retractions, labored breathing, is not present, Breath sounds: are clear throughout, no decreased breath sounds. 18:12 Abdomen/GI: Inspection: abdomen appears normal, Bowel sounds: active, all quadrants, Palpation: abdomen is soft and non-tender, in all quadrants, rebound tenderness, is not appreciated, voluntary guarding, is not appreciated, involuntary guarding, is not appreciated. 18:12 Back: pain, is absent. 18:12 Skin: no rash present. 18:12 Neuro: Orientation: to person, place \T\ time. Mentation: is normal. Vital Signs: 15:37 BP 124 / 84; Pulse 69; Resp 15 S; Temp 97.9(TE); Pulse Ox 100% on R/A; Weight 68.04 kg ca1 (R); Height 6 ft. (182.88 cm) (R); 19:34 BP 133 / 72; Pulse 69; Resp 16; Pulse Ox 98% on R/A; Pain 0/10; jb4 15:37 Body Mass Index 20.34 (68.04 kg, 182.88 cm) ca1 MDM: 17:50 Patient medically screened. cp 18:00 Differential diagnosis: Nonspecific abd pain, gastritis, appendicitis, viral cp gastroenteritis, gastroenteritis, dehydration, influenza, strep, COVID-19. 19:35 Data reviewed: vital signs, nurses notes, lab test result(s). cp 19:35 ED course: VSS. Nausea improved, no vomiting observed in ED and patient observed cp tolerating po fluids. Will discharge to home to self quarantine while awaiting results of COVID-19 testing. 12/10 17:51 Order name: COVID-19 cp 12/10 17:51 Order name: Flu cp 12/10 17:51 Order name: Strep cp 12/10 19:15 Order name: Throat Culture EDMS 12/10 17:51 Order name: Document PUI#; Complete Time: 19:38 cp 12/10 17:51 Order name: Droplet/Contact Precautions; Complete Time: 19:38 cp 12/10 17:51 Order name: Labs collected and sent; Complete Time: 19:38 cp 12/10 17:51 Order name: Notify Health Dept [phone]/ ; Complete Time: 19:38 cp 12/10 17:51 Order name: O2 Per Protocol; Complete Time: 17:53 cp 12/10 17:51 Order name: PO challenge; Complete Time: 19:38 cp Administered Medications: 18:32 Not Given (DISCONTINUED): Zofran (Ondansetron) 4 mg IVP once; over 2 minutes jr10 18:32 Drug: Zofran (Ondansetron) 4 mg Route: PO; jr10 19:37 Follow up: Response: No adverse reaction; Nausea is decreased jb4 Disposition: 12/11/19 19:36 Discharged to Home. Impression: Nausea and vomiting, Diarrhea, unspecified. - Condition is Stable. - Discharge Instructions: Food Choices to Help Relieve Diarrhea, Adult, Diarrhea, Adult, Nausea and Vomiting, Adult. - Prescriptions for Zofran 4 mg Oral Tablet - take 1 tablet by ORAL route every 12 hours As needed; 20 tablet. - Medication Reconciliation Form, Thank You Letter, Antibiotic Education, Prescription Opioid Use form. - Follow up: Private Physician; When: 1 - 2 days; Reason: Worsening of condition. - Problem is new. - Symptoms have improved. Addendum: 12/13/2019 10:41 Co-signature as Attending Physician, Alejandro Alvarado MD I agree with the assessment and k dr plan of care. Signatures: Dispatcher [employer] EDMS Alejandro Alvarado MD MD [facility] Renny Fuentes PA PA cp Bryson, James, RN RN jb4 Judith Chacko RN RN ca1 Bette Lowery, RN RN jr10 Corrections: (The following items were deleted from the chart) 12/10 19:47 19:36 12/11/2019 19:36 Discharged to Home. Impression: Nausea and vomiting; Diarrhea, jb4 unspecified. Condition is Stable. Forms are Medication Reconciliation Form, Thank You Letter, Antibiotic Education, Prescription Opioid Use. Follow up: Private Physician; When: 1 - 2 days; Reason: Worsening of condition. Problem is new. Symptoms have improved. cp
--- NOTE | 2019-12-11 19:36 | ER ---
Nurse's Notes [facility] Name: Yunior Bautista Age: 24 yrs Sex: Male : 1995 Arrival Date: 12/11/2019 Time: 15:14 Bed 14 Private MD: Diagnosis: Nausea and vomiting;Diarrhea, unspecified Presentation: 12/10 15:37 Chief complaint: Patient states: Nausea, vomiting and diarrhea since late last night. ca1 Abdominal cramps with BM. Feels hot and sweaty. Coronavirus screen: Client denies travel out of the [place] in the last 14 days. At this time, the client does not indicate any symptoms associated with coronavirus-19. Ebola Screen: Patient negative for fever greater than or equal to 101.5 degrees Fahrenheit, and additional compatible Ebola Virus Disease symptoms Patient denies exposure to infectious person. Patient denies travel to an Ebola-affected area in the 21 days before illness onset. No symptoms or risks identified at this time. Initial Sepsis Screen: Does the patient meet any 2 criteria? No. Patient's initial sepsis screen is negative. Does the patient have a suspected source of infection? No. Patient's initial sepsis screen is negative. Risk Assessment: Do you want to hurt yourself or someone else? Patient reports no desire to harm self or others. Onset of symptoms was December 11, 2019. 15:37 Method Of Arrival: Ambulatory ca1 15:37 Acuity: JJ 3 ca1 Historical: - Allergies: 15:40 No Known Allergies; ca1 - Home Meds: 15:40 None [Active]; ca1 - PMHx: 15:40 Hyperactive Thyroid; ca1 - PSHx: 15:40 None; ca1 - Immunization history:: Adult Immunizations up to date. - Social history:: Smoking status: Patient reports the use of cigarette tobacco products, denies chronic smoking, but will smoke occasionally. Screenin:30 Abuse screen: Denies threats or abuse. Denies injuries from another. Nutritional jr10 screening: No deficits noted. Tuberculosis screening: No symptoms or risk factors identified. Fall Risk None identified. Assessment: 18:30 General: Appears in no apparent distress. Behavior is calm, cooperative, appropriate jr10 for age. Pain: Denies pain. Neuro: No deficits noted. Cardiovascular: No deficits noted. Respiratory: No deficits noted. GI: Abdomen is flat, non-distended, Bowel sounds present X 4 quads. Abd is soft and non tender X 4 quads. Reports cramping, diarrhea, intolerance of fluids, intolerance of food, nausea, vomiting, since this morning, reports eating [employer] last night. Denies any contact with COVID + persons. : No deficits noted. No signs and/or symptoms were reported regarding the genitourinary system. Derm: No deficits noted. No signs and/or symptoms reported regarding the dermatologic system. Musculoskeletal: No deficits noted. No signs and/or symptoms reported regarding the musculoskeletal system. 18:56 Reassessment: ice chips provided for PO challenge. jr10 19:15 Reassessment: Patient and/or family updated on plan of care and expected duration. Pain jb4 level reassessed. Patient is alert, oriented x 3, equal unlabored respirations, skin warm/dry/pink. PT is awake, alert, and oriented x4. Pt is laying on his side using his cell phone. No s/s of pain or distress noted. Pt denies pain, reports nausea has decreased. 19:46 Reassessment: Pt verbalized understanding of d/c and follow up instructions. Denies jb4 questions or concerns. Ambulated out of ED with steady gait. Vital Signs: 15:37 BP 124 / 84; Pulse 69; Resp 15 S; Temp 97.9(TE); Pulse Ox 100% on R/A; Weight 68.04 kg ca1 (R); Height 6 ft. (182.88 cm) (R); 19:34 BP 133 / 72; Pulse 69; Resp 16; Pulse Ox 98% on R/A; Pain 0/10; jb4 15:37 Body Mass Index 20.34 (68.04 kg, 182.88 cm) ca1 ED Course: 15:14 Patient arrived in ED. ds1 15:39 Triage completed. ca1 15:40 Arm band placed on right wrist. ca1 17:41 Bette Lowery, CK is Primary Nurse. jr10 17:43 Renny Fuentes PA is PHCP. cp 17:43 Alejandro Alvarado MD is Attending Physician. cp 18:30 Patient has correct armband on for positive identification. Bed in low position. Call jr10 light in reach. Side rails up X 1. 18:56 No provider procedures requiring assistance completed. jr10 19:46 Patient did not have IV access during this emergency room visit. jb4 Administered Medications: 18:32 Not Given (DISCONTINUED): Zofran (Ondansetron) 4 mg IVP once; over 2 minutes jr10 18:32 Drug: Zofran (Ondansetron) 4 mg Route: PO; jr10 19:37 Follow up: Response: No adverse reaction; Nausea is decreased jb4 Outcome: 19:36 Discharge ordered by . mike 19:46 Discharged to home ambulatory. jb4 19:46 Condition: stable 19:46 Discharge instructions given to patient, Instructed on discharge instructions, follow up and referral plans. medication usage, The need to self quarantine for 2 weeks pending Covid-19 test results. Demonstrated understanding of instructions, follow-up care, medications, Prescriptions given X 1. 19:47 Patient left the ED. jb4 Signatures: Maite Trejo ds1 Renny Fuentes PA PA cp Bryson, James, RN RN jb4 Judith Chacko RN Bette Blanco RN RN jr10
[2019-12-11 19:52] VITALS: TEMP 97.9
[2019-12-11 19:54] VITALS: BP 133/72; O2SAT 98
== END 2019-12-11 19:47 | disposition home or self-care (01) ==
LOC: ER 15:14
DX: R19.7 Diarrhea, unspecified (principal); Z20.828 Contact with and (suspected) exposure to other viral communicable diseases
CPT/HCPCS: 87070; 87081; 87804; 99283; U0002

== ENCOUNTER 2020-06-11 13:45 | Emergency (ER) | payer OTHER, SELFPAY ==
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
[2020-06-11 20:04] VITALS: BP 141/86; TEMP 98.7; O2SAT 95
== END 2020-06-11 19:16 | disposition left against medical advice (07) ==
LOC: ER 13:45
DX: Z53.21 Procedure and treatment not carried out due to patient leaving prior to being seen by health care provider (principal)
CPT/HCPCS: 99281

== ENCOUNTER 2020-06-19 12:31 | Emergency (ER) | payer OTHER ==
[2020-06-19 15:00] LABS: Absolute Lymphocytes (CBC) 1.4 K/uL (0.7-4.9); Basophils % 0.5 % (0-1.3); Hematocrit 53.9 % (39.6-49.0); Lymphocytes % 15.1 % (15.3-44.8); MPV 9.1 fL (7.6-11.3); RBC Red Blood Cell Count 6.27 M/uL (4.33-5.43)
[2020-06-19] MEDS ORDERED: NA CHLORIDE 0.9% 1,000 ML ONE (15:24)
[2020-06-19] MEDS ORDERED: ONDANSETRON 4 MG/2 ML VIAL ONE (15:24)
[2020-06-19 15:35] LABS: Albumin 4.5 g/dL (3.4-5.0); Bilirubin Direct 0.1 mg/dL (0-0.2); Bilirubin Total 0.6 mg/dL (0.2-1.0); Potassium 4.2 mmol/L (3.5-5.1); Protein, Total 8.4 g/dL (6.4-8.2)
[2020-06-19 16:35] LABS: SARS-COV-2 RT PCR NEGATIVE (NEGATIVE)
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
[2020-06-19 17:17] VITALS: TEMP 98.4
[2020-06-19 17:19] VITALS: BP 150/81; O2SAT 96
== END 2020-06-19 17:11 | disposition home or self-care (01) ==
LOC: ER 12:31
DX: R11.2 Nausea with vomiting, unspecified (principal); Z20.822 Contact with and (suspected) exposure to COVID-19; F17.210 Nicotine dependence, cigarettes, uncomplicated
CPT/HCPCS: 96361; 85025; 80048; 36415; 86308; 80076; 84443; 83690; 0240U; 96374; 99284; J7030; J2405

== ENCOUNTER 2025-02-24 15:48 | Emergency (ER) | payer OTHER, SELFPAY ==
[2025-02-24 17:16] LABS: Urine Microscopic Reflex YN NO UMIC
--- NOTE | 2025-02-24 17:26 | EDPHYS ---
Physician Documentation [facility] Name: Yunior Bautista Age: 29 yrs Sex: Male : 1995 Arrival Date: 02/24/2025 Time: 15:48 Bed 10 Private MD: ED Physician Sha Mattson HPI: 02/24 17:21 This 29 yrs old Male presents to ER via Ambulatory with complaints of Urinary Problem. kb 17:21 Pt is a 29 year old male who presents for urinary frequency for a couple of days, then kb noticed some clear discharge and tingling to penis at the end of flow just spinner frame. Denies fever. States he hasn't had any other discharge besides that one time. . Historical: - Allergies: 16:50 No Known Allergies; jb4 - PMHx: 16:50 Hyperactive Thyroid; jb4 - PSHx: 16:50 None; jb4 - Immunization history:: Adult Immunizations up to date. - Infectious Disease History:: Denies. - Social history:: Smoking status: Patient denies any tobacco usage or history of. ROS: 17:23 Constitutional: As per HPI kb Exam: 17:23 Constitutional: This is a well developed, well nourished patient who is awake, alert, kb and in no acute distress. Head/Face: Normocephalic, atraumatic. ENT: Moist Mucous membranes Respiratory: Respirations even and unlabored. No increased work of breathing. Talking in full sentences Abdomen/GI: Soft, non-tender. No distention Skin: Warm, dry with normal turgor. Normal color. MS/ Extremity: Pulses equal, no cyanosis. Neurovascular intact. Full, normal range of motion. Neuro: Awake and alert, GCS 15, oriented to person, place, time, and situation. Vital Signs: 17:00 BP 136 / 78; Pulse 80; Resp 16; Pulse Ox 100% on R/A; jb4 MDM: 15:52 Medical Screening Exam initiated kb 17:23 Differential diagnosis: uti, kidney stone, sti. Data reviewed: vital signs, nurses kb notes. Test considered but Not performed: CT: ct stone considered but pt denies pain. Counseling: I had a detailed discussion with the patient and/or guardian regarding the historical points, exam findings, and any diagnostic results supporting the discharge/admit diagnosis, lab results, the need for outpatient follow up, a family practitioner, to return to the emergency department if symptoms worsen or persist or if there are any questions or concerns that arise at home. 02/24 16:30 Order name: UA Rfx Greyson Cult if indicated; Complete Time: 17:21 kb 02/24 16:34 Order name: GC (Kvng/Chl) Probe URINE kb Administered Medications: No medications were administered Disposition Summary: 02/24/25 17:26 Discharge Ordered Notes: Location: Home kb Condition: Stable kb Diagnosis - Dysuria kb Followup: kb - With: Private Physician - When: 2 - 3 days - Reason: Recheck today's complaints, Continuance of care, Re-evaluation by your physician Followup: kb - With: Emergency Department - When: As needed - Reason: Worsening of condition Discharge Instructions: - Discharge Summary Sheet kb - Dysuria kb Forms: - Medication Reconciliation Form kb - Antibiotic Education kb - Prescription Opioid Use kb - Patient Portal Instructions kb - Leadership Thank You Letter kb Signatures: Dispatcher [employer] Mary Alice Lao, SUPPORT ASSISTANT-C SUPPORT ASSISTANT-Jett Ventura, RN RN jb4
--- NOTE | 2025-02-24 17:26 | ER ---
Nurse's Notes [facility] Name: Yunior Bautista Age: 29 yrs Sex: Male : 1995 Arrival Date: 02/24/2025 Time: 15:48 Bed 10 Private MD: Diagnosis: Dysuria Presentation: 02/24 16:49 Chief complaint: Patient states: I have been having urinary frequency for the past few jb4 days, tingling and discharge. Coronavirus screen: At this time, the client does not indicate any symptoms associated with coronavirus-19. Ebola Screen: No symptoms or risks identified at this time. Initial Sepsis Screen: Does the patient meet any 2 criteria? No. Patient's initial sepsis screen is negative. Does the patient have a suspected source of infection? No. Patient's initial sepsis screen is negative. Risk Assessment: Do you want to hurt yourself or someone else? Patient reports no desire to harm self or others. Onset of symptoms was February 21, 2025. Transition of care: patient was not received from another setting of care. 16:49 Method Of Arrival: Ambulatory jb4 16:49 Acuity: JJ 4 jb4 Historical: - Allergies: 16:50 No Known Allergies; jb4 - PMHx: 16:50 Hyperactive Thyroid; jb4 - PSHx: 16:50 None; jb4 - Immunization history:: Adult Immunizations up to date. - Infectious Disease History:: Denies. - Social history:: Smoking status: Patient denies any tobacco usage or history of. Screenin:00 [facility] ED Fall Risk Assessment (Adult) History of falling in the last 3 months, jb4 including since admission No falls in past 3 months (0 pts) Confusion or Disorientation No (0 pts) Intoxicated or Sedated No (0 pts) Impaired Gait No (0 pts) Mobility Assist Device Used No (0 pt) Altered Elimination No (0 pt) Score/Fall Risk Level 0 - 2 = Low Risk Oriented to surroundings, Maintained a safe environment. Abuse screen: Denies threats or abuse. Nutritional screening: No deficits noted. Tuberculosis screening: No symptoms or risk factors identified. Assessment: 17:29 Reassessment: Patient appears in no apparent distress at this time. Patient and/or jb4 family updated on plan of care and expected duration. Pain level reassessed. Patient is alert, oriented x 3, equal unlabored respirations, skin warm/dry/pink. Vital Signs: 17:00 BP 136 / 78; Pulse 80; Resp 16; Pulse Ox 100% on R/A; jb4 ED Course: 15:51 Patient arrived in ED. al6 15:51 Mary Alice Ghosh FNP-C is [facility]. kb 15:51 Sha Mattson MD is Attending Physician. kb 16:50 Triage completed. jb4 16:50 Arm band placed on right wrist. jb4 17:00 Patient has correct armband on for positive identification. Bed in low position. Call jb4 light in reach. Side rails up X 1. Provided Education on: plan of care. 17:00 No provider procedures requiring assistance completed. Patient did not have IV access jb4 during this emergency room visit. Administered Medications: No medications were administered Medication: 17:00 VIS not applicable for this client. jb4 Outcome: 17:26 Discharge ordered by . kb 17:29 Discharged to home ambulatory, jb4 17:29 Condition: stable 17:29 Discharge instructions given to patient, Instructed on discharge instructions, follow up and referral plans. Demonstrated understanding of instructions, follow-up care, 17:30 Patient left the ED. jb4 Signatures: Mary Alice Ghosh FNP-C FNP-Jett Ventura, RN RN jb4 Janie Sahu al6
[2025-02-24 22:33] VITALS: BP 136/78; O2SAT 100
[2025-02-27 17:00] LABS: C.trachomatis RNA,TMA Not Detected (Not Detected); N.gonorrhoeae RNA,TMA Not Detected (Not Detected)
== END 2025-02-24 17:30 | disposition home or self-care (01) ==
LOC: ER 15:48
DX: R30.0 Dysuria (principal)
CPT/HCPCS: 81003; 87490; 87590; 99282